=== PATIENT | male | born 1995 | race Caucasian/White ===

== ENCOUNTER 2020-07-02 22:58 | Emergency (ER) | payer BC, MEDICAID | END 2020-07-03 00:01 | disposition left against medical advice (07) | LOC: MW.ED 22:58 | DX: Z53.21 Procedure and treatment not carried out due to patient leaving prior to being seen by health care provider (principal) ==

== ENCOUNTER 2020-07-03 14:02 | Emergency (ER) | payer MEDICAID ==
--- NOTE | 2020-07-03 14:56 | EDM.PDOC ---
ED HPI GENERAL MEDICAL PROBLEM - General Chief Complaint: Skin Complaint Stated Complaint: RASH ON ARMS Time Seen by Provider: 07/03/20 14:12 Source of Information: Reports: Patient History Limitations: Reports: No Limitations - History of Present Illness INITIAL COMMENTS - FREE TEXT/NARRATIVE: HISTORY AND PHYSICAL: History of present illness: Patient is a 25-year-old male who presents to the ED today with concern of a rash that appears in different spots over his body x1 day. Patient states the rash is itchy and tends to get worse if he scratches it. Patient states he has not had a rash like this before and has taken 1 dose of Benadryl with mild relief of symptoms. Patient denies any associated symptoms and states that at one moment the rash will be on his arm and then disappears and will reappear a different spot. Patient denies any other symptoms or concerns. Patient denies fever, chills, chest pain, shortness of breath, or cough. Denies headache, neck stiff ness, change in vision, syncope, or near syncope. Denies nausea, vomiting, abdominal pain, diarrhea, constipation, or dysuria. Has not noted any blood in urine or stool. Patient has been eating and drinking appropriately. Review of systems: As per history of present illness and below otherwise all systems reviewed and negative. Past medical history: As per history of present illness and as reviewed below otherwise noncontributory. Surgical history: As per history of present illness and as reviewed below otherwise noncontributory. Social history: See social history for further information Family history: As per history of present illness and as reviewed below otherwise noncontributory. Physical exam: General: Patient is alert, oriented, and in no acute distress. Patient sitting comfortably on exam table. HEENT: Atraumatic, normocephalic, pupils equal and reactive bilaterally, negative for conjunctival pallor or scleral icterus, mucous membranes moist, TMs normal bilaterally, throat clear, neck supple, nontender, trachea midline. No drooling or trismus noted. No meningeal signs. No hot potato voice noted. Lungs: Clear to auscultation, breath sounds equal bilaterally, chest nontender. Heart: S1S2, regular rate and rhythm without overt murmur Abdomen: Soft, nondistended, nontender. Negative for masses or hepatosplenomegaly. Negative for costovertebral tenderness. Pelvis: Stable nontender. Genitourinary: Deferred. Rectal: Deferred. Skin: Urticaria is present on the right bicepts area and left wrist. Patient trying to scratch this area with appearance of more urticaria with scratching. Otherwise, Intact, warm, dry. No lesions or rashes noted. Extremities: Atraumatic, negative for cords or calf pain. Neurovascular unremarkable. Neuro: Awake, alert, oriented. Cranial nerves II through XII unremarkable. Cerebellum unremarkable. Motor and sensory unremarkable throughout. Exam nonfocal. Notes: Patient does appear to have a Discussed importance for follow-up with a primary care provider. Voices understanding and is agreeable to plan of care. Denies any further questions or concerns at this time. Diagnostics: None Therapeutics: None Prescription: Medrol dose pack Impression: Urticaria Plan: 1. Avoid triggers. Continue to monitor for possible exposures/triggers/foods. 2. While symptomatic continue to routinely take Benadryl 50mg every 4-6 hours and Zantac 150mg twice daily. Take the Medrol dose pack as prescribed. 3. You may use topical calamine lotion, cool tempid oatmeal baths, Aveeno bath/lotions. 4. Consider formal allergy testing once you have completed your medications and have improved. 5. Please follow up with your Primary care doctor as discussed. Return to the ED as needed and as discussed. Definitive disposition and diagnosis as appropriate pending reevaluation and review of above. Hand Pain Score (Numeric/FACES): 4 - Related Data Allergies Allergy/AdvReac Type Severity Reaction Status Date / Time No Known Allergies Allergy Verified 04/12/18 15:43 MDT Home Meds: Home Meds methylPREDNISolone [Medrol] 4 mg PO ASDIRECTED #1 dosepk 07/03/20 [Rx] Past Medical History - Past Health History Medical/Surgical History: Denies Medical/Surgical History Musculoskeletal History: Reports: Other (See Below) Other Musculoskeletal History: left 5th digit lac and tendon repair-in [place] - Infectious Disease History Infectious Disease History: Reports: None Social & Family History - Family History Family Medical History: Noncontributory - Caffeine Use Caffeine Use: Reports: None Other Caffeine Use: daily - Recreational Drug Use Recreational Drug Use: No ED ROS GENERAL - Review of Systems Review Of Systems: Comprehensive ROS is negative, except as noted in HPI. ED EXAM, SKIN/RASH Exam: See Below (see dictation) Course - Vital Signs Last Recorded V/S: Last Vital Signs Temp 97.7 F 07/03/20 14:13 Pulse 91 07/03/20 14:13 Resp 16 07/03/20 14:13 BP 141/86 H 07/03/20 14:13 Pulse Ox 97 07/03/20 14:13 Departure - Departure Time of Disposition: 14:55 Disposition: Home, Self-Care 01 Clinical Impression: Urticaria - Discharge Information Prescriptions: methylPREDNISolone [Medrol] 4 mg PO ASDIRECTED #1 dosepk Instructions: Contact Dermatitis, [id number] Referrals: PCP,None [Primary Care Provider] - Forms: ED Department Discharge Additional Instructions: The following information is given to patients seen in the emergency department who are being discharged to home. This information is to outline your options for follow-up care. We provide all patients seen in our emergency department with a follow-up referral. The need for follow-up, as well as the timing and circumstances, are variable depending upon the specifics of your emergency department visit. If you don't have a primary care physician on staff, we will provide you with a referral. We always advise you to contact your personal physician following an emergency department visit to inform them of the circumstance of the visit and for follow-up with them and/or the need for any referrals to a consulting specialist. The emergency department will also refer you to a specialist when appropriate. This referral assures that you have the opportunity for follow-up care with a specialist. All of these measure are taken in an effort to provide you with optimal care, which includes your follow-up. Under all circumstances we always encourage you to contact your private physician who remains a resource for coordinating your care. When calling for follow-up care, please make the office aware that this follow-up is from your recent emergency room visit. If for any reason you are refused follow-up, please contact the [facility] Emergency Department at and asked to speak to the emergency department charge nurse. [facility] [address] [place] [id number] [place] [address] 1. Avoid triggers. Continue to monitor for possible exposures/triggers/foods. 2. While symptomatic continue to routinely take Benadryl 50mg every 4-6 hours and Zantac 150mg twice daily. Take the Medrol dose pack as prescribed. 3. You may use topical calamine lotion, cool tempid oatmeal baths, Aveeno bath/lotions. 4. Consider formal allergy testing once you have completed your medications and have improved. 5. Please follow up with your Primary care doctor as discussed. Return to the ED as needed and as discussed. Sepsis Event Note (ED) - Evaluation Sepsis Screening Result: No Definite Risk - Focused Exam Vital Signs: Vital Signs Temp Pulse Resp BP Pulse Ox 07/03/20 14:13 97.7 F 91 16 141/86 H 97
== END 2020-07-03 15:07 | disposition home or self-care (01) ==
LOC: MW.ED 14:02
DX: L50.9 Urticaria, unspecified (principal)
CPT/HCPCS: 99282